=== PATIENT | female | born 1990 | race Caucasian/White ===

== ENCOUNTER 2016-12-24 01:55 | Emergency (ER) | payer OTHER ==
[~2016-12-24] VITALS: Ht 162.6 cm; Wt 54.4 kg
[2016-12-24 03:57] LABS: microscopic required? YES; urine erythrocyte TRACE (NEGATIVE)
[2016-12-24 03:58] LABS: BASOPHIL % 0.1 % (0-2); PLATELET COUNT 222 x10^3mcL (130-400); RED CELL DISTRIBUTION WIDTH 12.9 % (11.5-14.5)
[2016-12-24 04:16] LABS: CALCIUM 8.6 mg/dL (8.5-10.1); CARBON DIOXIDE 28.8 mmol/L (21-32); CHLORIDE SERUM 103 mmol/L (98-107); CREATININE SERUM 0.6 mg/dL (0.6-1.0); GFR1 > 60 mL/min; GLUCOSE SERUM 87 mg/dL (74-106); POTASSIUM SERUM 3.7 mmol/L (3.5-5.1); SODIUM SERUM 140 mmol/L (136-145)
[2016-12-24 04:20] LABS: ALBUMIN 3.7 g/dL (3.4-5.0); ALKALINE PHOSPHATASE 48 U/L (46-116); ALT/SGPT 17 U/L (14-59); AMYLASE 46 U/L (25-115); AST/SGOT 10 U/L (15-37); BILIRUBIN TOTAL 0.87 mg/dL (0.20-1.00); LIPASE 92 IU/L (73-393); TOTAL PROTEIN, SERUM 6.9 g/dL (6.4-8.2)
[2016-12-24 05:22] VITALS: BP 113/74
== END 2016-12-24 05:22 | disposition home or self-care (01) ==
LOC: ED 01:55
PROVIDERS: Emergency Medicine
DX: N83.201 Unspecified ovarian cyst, right side (principal); R30.0 Dysuria
CPT/HCPCS: J2270; Q0162

== ENCOUNTER 2017-06-07 10:44 | Emergency (ER) | payer OTHER ==
[~2017-06-07] VITALS: Ht 167.6 cm; Wt 51.2 kg
[2017-06-07 11:14] VITALS: BP 113/72
== END 2017-06-07 11:14 | disposition home or self-care (01) ==
LOC: ED 10:44
DX: S16.1XXA Strain of muscle, fascia and tendon at neck level, initial encounter (principal); S29.012A Strain of muscle and tendon of back wall of thorax, initial encounter; V89.2XXA Person injured in unspecified motor-vehicle accident, traffic, initial encounter; Y93.89 Activity, other specified; Y99.8 Other external cause status; Y92.89 Other specified places as the place of occurrence of the external cause

== ENCOUNTER 2017-09-13 00:52 | Emergency (ER) | payer OTHER ==
[~2017-09-13] VITALS: Ht 157.5 cm; Wt 52.6 kg
[2017-09-13 01:20] VITALS: Ht 157.5 cm; Wt 52.6 kg
[2017-09-13 03:50] VITALS: BP 120/85
== END 2017-09-13 03:50 | disposition home or self-care (01) ==
LOC: ED 00:52
DX: R51 Headache (principal); Z97.5 Presence of (intrauterine) contraceptive device
CPT/HCPCS: J1100; J1885; J2765; J7030

== ENCOUNTER 2017-11-19 15:00 | Emergency (ER) | payer OTHER ==
[~2017-11-19] VITALS: Ht 160 cm; Wt 54.4 kg
[2017-11-19 15:08] VITALS: BP 109/69; Ht 160 cm; Wt 54.4 kg
== END 2017-11-19 16:45 | disposition home or self-care (01) ==
LOC: ED 15:00
DX: M43.6 Torticollis (principal)

== ENCOUNTER 2018-02-03 22:23 | Emergency (ER) | payer OTHER ==
[~2018-02-03] VITALS: Ht 160 cm; Wt 53.6 kg
[2018-02-03 22:36] VITALS: Ht 160 cm; Wt 53.6 kg
[2018-02-03 23:40] VITALS: BP 102/69
== END 2018-02-03 23:40 | disposition home or self-care (01) ==
LOC: ED 22:23
DX: R21 Rash and other nonspecific skin eruption (principal)

== ENCOUNTER 2018-07-24 13:12 | Emergency (ER) | payer SELFPAY ==
[~2018-07-24] VITALS: Ht 160 cm; Wt 54.0 kg
[2018-07-24 13:25] VITALS: Ht 160 cm; Wt 54.0 kg
[2018-07-24 14:31] LABS: BASOPHIL % 0.4 % (0-2); PLATELET COUNT 249 x10^3mcL (130-400); RED CELL DISTRIBUTION WIDTH 12.7 % (11.5-14.5)
[2018-07-24 14:39] LABS: CALCIUM 8.6 mg/dL (8.5-10.1); CARBON DIOXIDE 26.9 mmol/L (21-32); CHLORIDE SERUM 103 mmol/L (98-107); CREATININE SERUM 0.7 mg/dL (0.6-1.0); GFR1 > 60 mL/min; GLUCOSE SERUM 88 mg/dL (74-106); POTASSIUM SERUM 3.9 mmol/L (3.5-5.1); SODIUM SERUM 139 mmol/L (136-145)
[2018-07-24 14:43] LABS: ALBUMIN 3.5 g/dL (3.4-5.0); ALKALINE PHOSPHATASE 43 U/L (46-116); ALT/SGPT 17 U/L (14-59); AMYLASE 44 U/L (25-115); AST/SGOT 13 U/L (15-37); BILIRUBIN TOTAL 0.6 mg/dL (0.20-1.00); LIPASE 99 IU/L (73-393); TOTAL PROTEIN, SERUM 7.4 g/dL (6.4-8.2)
[2018-07-24 16:25] VITALS: BP 103/72
== END 2018-07-24 16:25 | disposition home or self-care (01) ==
LOC: ED 13:12
PROVIDERS: Emergency Medicine
DX: K52.9 Noninfective gastroenteritis and colitis, unspecified (principal); M41.9 Scoliosis, unspecified; Z98.890 Other specified postprocedural states; Z97.5 Presence of (intrauterine) contraceptive device
CPT/HCPCS: J2405

== ENCOUNTER 2018-08-02 12:11 | Emergency (ER) | payer MEDICAID ==
[~2018-08-02] VITALS: Ht 160 cm; Wt 53.5 kg
[2018-08-02 12:16] VITALS: Ht 160 cm; Wt 53.5 kg
[2018-08-02 15:24] VITALS: BP 102/65
== END 2018-08-02 15:24 | disposition home or self-care (01) ==
LOC: ED 12:11
DX: G44.209 Tension-type headache, unspecified, not intractable (principal); M54.2 Cervicalgia
CPT/HCPCS: J1885

== ENCOUNTER 2018-10-16 14:01 | Emergency (ER) | payer MEDICAID ==
[~2018-10-16] VITALS: Ht 160 cm; Wt 53.5 kg
[2018-10-16 14:35] VITALS: Ht 160 cm; Wt 53.5 kg
[2018-10-16 17:20] LABS: UA SPECIFIC GRAVITY <=1.005 (1.005-1.035); microscopic required? YES; urine erythrocyte NEGATIVE (NEGATIVE)
[2018-10-16 17:54] VITALS: BP 94/55
== END 2018-10-16 17:54 | disposition home or self-care (01) ==
LOC: ED 14:01
PROVIDERS: Emergency Medicine
DX: N12 Tubulo-interstitial nephritis, not specified as acute or chronic (principal); Z98.890 Other specified postprocedural states
CPT/HCPCS: J0696; J1885; Q0162

== ENCOUNTER 2018-10-29 23:50 | Emergency (ER) | payer MEDICAID ==
[~2018-10-29] VITALS: Ht 160 cm; Wt 53.6 kg
[2018-10-30 00:12] VITALS: BP 115/78; Ht 160 cm; Wt 53.6 kg
== END 2018-10-30 00:39 | disposition home or self-care (01) ==
LOC: ED 23:50
DX: N39.0 Urinary tract infection, site not specified (principal)

== ENCOUNTER 2019-02-14 22:11 | Emergency (ER) | payer OTHER ==
[~2019-02-14] VITALS: Ht 162.6 cm; Wt 54.9 kg
[2019-02-14 22:18] VITALS: Ht 162.6 cm; Wt 54.9 kg
[2019-02-15 00:51] LABS: UA SPECIFIC GRAVITY 1.015 (1.005-1.035); microscopic required? YES; urine erythrocyte TRACE (NEGATIVE)
[2019-02-15 01:29] VITALS: BP 110/77
== END 2019-02-15 01:29 | disposition home or self-care (01) ==
LOC: ED 22:11
PROVIDERS: Emergency Medicine
DX: N76.0 Acute vaginitis (principal)
CPT/HCPCS: 87491; 87591

== ENCOUNTER 2019-07-08 03:54 | Emergency (ER) | payer OTHER ==
[~2019-07-08] VITALS: Ht 165.1 cm; Wt 54.7 kg
[2019-07-08 06:31] VITALS: BP 115/72
== END 2019-07-08 06:31 | disposition home or self-care (01) ==
LOC: ED 03:54
DX: N39.0 Urinary tract infection, site not specified (principal)
CPT/HCPCS: 87491; 87591; J1885

== ENCOUNTER 2020-03-19 02:17 | Emergency (ER) | payer OTHER ==
[~2020-03-19] VITALS: Ht 160 cm; Wt 59.5 kg
[2020-03-19 04:22] VITALS: BP 101/63
== END 2020-03-19 04:22 | disposition home or self-care (01) ==
LOC: ED 02:17
DX: R51 Headache (principal); R11.0 Nausea
CPT/HCPCS: J1885

== ENCOUNTER 2020-04-01 20:16 | Emergency (ER) | payer OTHER ==
[~2020-04-01] VITALS: Ht 160 cm; Wt 59.0 kg
[2020-04-01 20:25] VITALS: Ht 160 cm; Wt 59.0 kg
[2020-04-01 20:55] LABS: BASOPHIL % 0.4 % (0-2); PLATELET COUNT 299 x10^3mcL (130-400); RED CELL DISTRIBUTION WIDTH 12.1 % (11.5-14.5)
[2020-04-01 20:57] LABS: CALCIUM 8.9 mg/dL (8.5-10.1); CARBON DIOXIDE 31.8 mmol/L (21-32); CHLORIDE SERUM 99 mmol/L (98-107); CREATININE SERUM 0.8 mg/dL (0.6-1.0); GFR1 > 60 mL/min; GLUCOSE SERUM 95 mg/dL (74-106); POTASSIUM SERUM 4.2 mmol/L (3.5-5.1); SODIUM SERUM 135 mmol/L (136-145)
[2020-04-01 21:02] LABS: ALBUMIN 4.1 g/dL (3.4-5.0); ALKALINE PHOSPHATASE 54 U/L (46-116); ALT/SGPT 60 U/L (14-59); AST/SGOT 29 U/L (15-37); BILIRUBIN TOTAL 0.5 mg/dL (0.20-1.00); TOTAL PROTEIN, SERUM 8.5 g/dL (6.4-8.2)
[2020-04-01 21:35] VITALS: BP 112/77
== END 2020-04-01 21:35 | disposition home or self-care (01) ==
LOC: ED 20:16
PROVIDERS: Emergency Medicine
DX: N39.0 Urinary tract infection, site not specified (principal); Z88.2 Allergy status to sulfonamides
CPT/HCPCS: J0295; J0696; J1885